=== PATIENT | female | born 1990 | race Caucasian/White ===

== ENCOUNTER 2025-07-18 20:56 | Emergency (ER) | payer OTHER ==
[~2025-07-18] VITALS: Ht 165.1 cm; Wt 70.5 kg
[2025-07-18 21:12] VITALS: TEMP 98
[2025-07-18] MEDS ORDERED: SODIUM CHLORIDE 0.9% 1,000 ML IV ONE (21:30)
[2025-07-18 22:14] VITALS: BP 111/50; PULSE 72; RESP 15; O2SAT 99
[2025-07-18 22:21] LABS: PLATELET COUNT (AUTO) 324 K/uL (150-450); RED BLOOD CELL COUNT(AUTO) 4.07 MIL/uL (4.00-5.20); RED CELL DISTRIBUTION WIDTH 14.6 % (11.5-14.5); WHITE BLOOD COUNT (AUTO) 7.7 K/uL (4.5-11.0)
[2025-07-18 22:35] LABS: ASPARTATE AMINOTRANSFERASE 19.0 U/L (15-37); CREATINE KINASE, TOTAL ONLY 74.0 U/L (26-192); TOTAL PROTEIN, SERUM 6.6 g/dL (6.4-8.2)
[2025-07-18 22:36] LABS: CALCIUM, TOTAL 8.2 mg/dL (8.8-10.5); CREATININE 0.62 mg/dL (0.60-1.30); GLOMERULAR FILTR. RATE CALC > 60 mL/min (>60); GLUCOSE,RANDOM 93 mg/dL (70-110); SODIUM SERUM 138 mmol/L (136-145); UREA NITROGEN, BLOOD 10 mg/dL (7-18)
[2025-07-18 22:44] LABS: TROPONIN I-HIGH SENSITIVITY 4 ng/L (<51)
[2025-07-18] MEDS: IBUPROFEN 400 MG TABLET PO ONE (22:49)
[2025-07-18] MEDS: ACETAMINOPHEN 500 MG TABLET PO ONE (22:49)
[2025-07-18] MEDS: METOCLOPRAMIDE HCL 10 MG TABLET PO ONE (22:49)
[2025-07-18] MEDS ORDERED: METO5TAB95 PO (23:16)
== END 2025-07-18 23:27 | disposition home or self-care (01) ==
LOC: EMS 20:56
DX: G43.109 Migraine with aura, not intractable, without status migrainosus (principal)
CPT/HCPCS: 99285; 70450; 71045; 80048; 80076; 82550; 83880; 84484; 84703; 85025; 85610; 85730; 36415; 93005; J7030

== ENCOUNTER 2025-10-30 10:09 | Emergency (ER) | payer OTHER ==
[~2025-10-30] VITALS: Ht 165.1 cm; Wt 68.2 kg
[~2025-10-30 10:09] MED LIST: METO5TAB95 PO
[2025-10-30 10:29] VITALS: TEMP 97.6
[2025-10-30 10:29] LABS: PLATELET COUNT (AUTO) 428 K/uL (150-450); RED BLOOD CELL COUNT(AUTO) 4.56 MIL/uL (4.00-5.20); RED CELL DISTRIBUTION WIDTH 14.7 % (11.5-14.5); WHITE BLOOD COUNT (AUTO) 10.1 K/uL (4.5-11.0)
[2025-10-30 10:36] LABS: CALCIUM, TOTAL 9.5 mg/dL (8.8-10.5); CREATININE 0.97 mg/dL (0.60-1.30); GLOMERULAR FILTR. RATE CALC > 60 mL/min (>60); GLUCOSE,RANDOM 111 mg/dL (70-110); SODIUM SERUM 137 mmol/L (136-145); UREA NITROGEN, BLOOD 13 mg/dL (7-18)
[2025-10-30 10:45] LABS: TROPONIN I-HIGH SENSITIVITY Less Than 4 ng/L (<51)
[2025-10-30] MEDS: FAMOTIDINE 20 MG/2 ML VIAL IVP ONE (11:24)
[2025-10-30] MEDS: MAG HYDROX/ALUMINUM HYD/SIMETH ES 30 ML SUSPENSION UDCUP PO ONE (11:24)
[2025-10-30 11:30] VITALS: BP 120/77; PULSE 78; RESP 19; O2SAT 99
[2025-10-30] MEDS: MORPHINE SULFATE 2 MG/ML SYRINGE IVP ONE (11:44)
[2025-10-30 12:47] LABS: APPEARANCE,URINE CLEAR (CLEAR); GLUCOSE, URINE (UA) NEGATIVE (NEGATIVE); LEUKOCYTE ESTERASE ,URINE NEGATIVE (NEGATIVE); NITRATE,URINE NEGATIVE (NEGATIVE); OCCULT BLOOD,URINE SMALL (NEGATIVE); SPECIFIC GRAVITIY, URINE 1.009 (1.003-1.030)
[2025-10-30 12:52] LABS: SQUAMOUS EPITHELIAL CELL,UR Rare /LPF (None Seen)
[2025-10-30 13:17] LABS: TROPONIN I-HIGH SENSITIVITY Less Than 4 ng/L (<51)
[2025-10-30] MEDS ORDERED: METH-659 PO (13:35)
[2025-10-30] MEDS ORDERED: IBUP-1492 PO (13:35)
[2025-10-30] MEDS ORDERED: PERCT PO (13:36)
== END 2025-10-30 13:58 | disposition home or self-care (01) ==
LOC: EMS 10:09
DX: S29.012A Strain of muscle and tendon of back wall of thorax, initial encounter (principal); R07.89 Other chest pain; F41.9 Anxiety disorder, unspecified; Z98.890 Other specified postprocedural states; Z79.899 Other long term (current) drug therapy; X58.XXXA Exposure to other specified factors, initial encounter; Y93.89 Activity, other specified; Y92.89 Other specified places as the place of occurrence of the external cause; Y99.8 Other external cause status
CPT/HCPCS: 99285; 96374; 71045; 96375; 80048; 81001; 83880; 84484; 85025; 36415; 93005; J3490; J2270